=== PATIENT | female | born 1995 | race Caucasian/White ===

== ENCOUNTER 2022-11-27 06:57 | Outpatient (OUT) | payer OTHER, SELFPAY ==
[2022-11-27 07:37] VITALS: BP 121/70; PULSE 70
== END 2022-11-27 09:55 | disposition home or self-care (01) ==
LOC: FBCO 07:15 → FBC 07:24
PROVIDERS: PCP Obstetrics & Gynecology; Visit Provider Obstetrics & Gynecology
DX: O99.820 Streptococcus B carrier state complicating pregnancy (principal); E03.9 Hypothyroidism, unspecified
CPT/HCPCS: 59025

== ENCOUNTER 2022-12-01 15:42 | Outpatient (OUT) | payer OTHER, SELFPAY | END 2022-12-01 15:43 | LOC: LAB 15:42 | PROVIDERS: Visit Provider Obstetrics & Gynecology | DX: R94.6 Abnormal results of thyroid function studies (principal) | CPT/HCPCS: 36415; 84443 ==

== ENCOUNTER 2022-12-01 15:52 | Outpatient (OUT) | payer OTHER, SELFPAY ==
--- NOTE | 2022-12-01 15:59 | US_ITS ---
[address] [address] Patient Name: MELANY MARION MRN: [id number] date: 1995 Sex: F [place] [facility] [place] [facility] [place]Order Number: [id number] Exam Date: 12/01/2022 16:00 Report Date: 12/02/2022 15:09 At the request of: RAIZA BOLAND Procedure: US OB BPP w non-stress EXAMINATION: US OB BPP w non-stress HISTORY: E03.9 HYPOTHYROIDISM COMPARISON: Ultrasound biophysical 11/24/2022 TECHNIQUE: Ultrasound biophysical profile was performed in the radiology department. BREATHING MOVEMENTS: 2.0 GROSS BODY MOVEMENTS: 2.0 TONE: 2.0 QUALITATIVE AMNIOTIC FLUID VOLUME: 2.0 PRESENTATION: CEPHALIC HEART RATE: 142.9 bpm bpm. AMNIOTIC FLUID VOLUME: 13.1 cm GESTATIONAL AGE: 34 weeks 6 days CONCLUSION: Total biophysical profile score 8.0. Electronically authenticated by: NITO WELSH Date: 12/02/2022 15:09
[2022-12-01 16:32] VITALS: BP 115/57; PULSE 81
== END 2022-12-01 17:26 | disposition home or self-care (01) ==
LOC: FBCO 16:11 → FBC 16:12
PROVIDERS: Visit Provider Obstetrics & Gynecology
DX: O99.283 Endocrine, nutritional and metabolic diseases complicating pregnancy, third trimester (principal); E03.9 Hypothyroidism, unspecified; Z3A.34 34 weeks gestation of pregnancy; R94.6 Abnormal results of thyroid function studies
CPT/HCPCS: 36415; 59025; 76818; 84443

== ENCOUNTER 2022-12-04 08:58 | Outpatient (OUT) | payer OTHER, SELFPAY | END 2022-12-04 09:00 | disposition home or self-care (01) | LOC: FBCO 08:58 → FBC 08:59 | PROVIDERS: Visit Provider Obstetrics & Gynecology | DX: O99.280 Endocrine, nutritional and metabolic diseases complicating pregnancy, unspecified trimester (principal); Z3A.00 Weeks of gestation of pregnancy not specified | CPT/HCPCS: 59025 ==

== ENCOUNTER 2022-12-08 16:00 | Outpatient (OUT) | payer OTHER, SELFPAY ==
--- NOTE | 2022-12-08 | US_ITS ---
[address] [address] Patient Name: MELANY MARION MRN: [id number] date: 1995 Sex: F Assigned Patient Location: [facility] Current Patient Location: [facility] Accession/Order Number: [id number] Exam Date: 12/08/2022 16:30 Report Date: 12/08/2022 17:14 At the request of: YESENIA ZARAGOZA Procedure: US OB BPP w non-stress EXAMINATION: US OB BPP w non-stress HISTORY: E03.9 HYPOTHYROIDISM COMPARISON: Ultrasound biophysical 12/01/2022 TECHNIQUE: Ultrasound biophysical profile was performed in the radiology department. BREATHING MOVEMENTS: 2.0 GROSS BODY MOVEMENTS: 2.0 TONE: 2.0 QUALITATIVE AMNIOTIC FLUID VOLUME: 2.0 PRESENTATION: CEPHALIC HEART RATE: 158.8 bpm bpm. AMNIOTIC FLUID VOLUME: 16.8 cm GESTATIONAL AGE: 35 weeks 6 days CONCLUSION: Total biophysical profile score 8.0. Electronically authenticated by: NITO WELSH Date: 12/08/2022 17:14
[2022-12-08 16:22] VITALS: BP 136/59; PULSE 83
--- NOTE | 2022-12-08 16:35 | US_ITS ---
[address] [address] Patient Name: MELANY MARION MRN: [id number] date: 1995 Sex: F Assigned Patient Location: [facility] Current Patient Location: [facility] Accession/Order Number: [id number] Exam Date: 12/08/2022 16:30 Report Date: 12/08/2022 17:13 At the request of: YESENIA ZARAGOZA Procedure: US OB growth EXAMINATION: US OB growth HISTORY: E03.9 HYPOTHYROIDISM COMPARISON: Ultrasound growth 11/10/2022 FINDINGS: Heart Rate: 158.8 bpm Number: 1.0 Position: CEPHALIC Amniotic Fluid Volume: 16.8 cm Maximum Vertical Pocket: 8.4 cm BIOMETRY: BPD: 9.3 cm cm; 37 weeks 5 days; 94% HC: 32.7 cmcm; 37 weeks 1 days; 51% AC: 34.4 cm cm; 38 weeks 2 days; >97% FL: 6.7 cm cm; 34 weeks 4 days; 14% EFW: 3148.4 grams; 85% FL/AC: 19.5 FL/BPD: 72.4 HC/AC: 1.0 GESTATIONAL AGE: Age by EDC: 35 weeks 6 days SEBAS by EDC: 01/06/2023 Age by US: 37 weeks 0 days SEBAS by US: 12/29/2022 IMPRESSION: 1. Single live intrauterine with growth detailed above. 2. Abdominal circumference is greater than 97th percentile. Electronically authenticated by: NITO WELSH Date: 12/08/2022 17:13
== END 2022-12-08 17:15 | disposition home or self-care (01) ==
LOC: US 16:14 → FBC 16:15
PROVIDERS: Visit Provider Obstetrics & Gynecology
DX: O99.283 Endocrine, nutritional and metabolic diseases complicating pregnancy, third trimester (principal); E03.9 Hypothyroidism, unspecified; Z3A.35 35 weeks gestation of pregnancy
CPT/HCPCS: 59025; 76816; 76818; 87081; 96372; J0702

== ENCOUNTER 2022-12-08 20:52 | Outpatient (REF) | payer OTHER, SELFPAY | END 2022-12-08 20:53 | disposition home or self-care (01) | LOC: LAB 20:52 | PROVIDERS: Visit Provider Obstetrics & Gynecology | DX: Z34.93 Encounter for supervision of normal pregnancy, unspecified, third trimester (principal) | CPT/HCPCS: 87081 ==

== ENCOUNTER 2022-12-09 09:07 | Inpatient (IN) | payer OTHER, SELFPAY ==
[2022-12-09] VITALS (47 sets, daily range): BP systolic 98–150; BP diastolic 52–86; PULSE 57–93; RESP 18; TEMP 31–37.9
[2022-12-09] MEDS: 0.9 % SODIUM CHLORIDE 1,000 ML 1000 ML IV (10:40)
[2022-12-09] MEDS: FENTANYL CITRATE/PF 100 MCG/2 ML VIAL (10:41)
[2022-12-09] MEDS: 0.9 % SODIUM CHLORIDE 1,000 ML 125 ML IV ×2 (10:41→18:51)
--- NOTE | 2022-12-09 11:07 | PC.NURSE ---
899- patient arrives via wheelchair, tearful, breathing through ctx, stating she is excruciating pain, upper right side of her back. Pt. nauseated, pale and diaphoretic. Abdomen soft to palpation, no bleeding or leaking of fluid. Pt. given gown and encouraged to change and obtain urine sample, denies ability at this time. Tearful and changing positions frequently, stating something is very wrong, I am afraid my cerclage is going to rip . Dr. Natarajan notified of patients arrival and presentation. 904- Dr. Natarajan arrives into room and assesses patient, SVE completed, cerclage intact. Pt. tearful and states back pain is constant. HR 120's at this time. Orders received to arrange for Cerclage removal . 916- Cerclage removed per Dr. Natarajan, small amount of bright red bleeding noted. SVE 2 cm. Orders received to obtain epidural. IV to L wrist placed per Jamel Guzman RN, NS bolus initiated.
[2022-12-09] MEDS: OXYTOCIN 10 UNIT in 0.9 % SODIUM CHLORIDE 500 ML 6.012 UNIT IV (12:45)
[2022-12-09 13:20] LABS: Basophils Percent Auto 0.1 % (0.2-2.0); Hematocrit 33.4 % (36.0-48.0); Immature Granulocytes Abs Auto 0.15 10^3/uL (0.00-0.03); Lymphocytes Absolute Auto 2.5 10^3/uL (1.2-3.8); Mean Corpuscular HGB Conc 32.9 g/dL (29.9-35.2); Mean Corpuscular Hemoglobin 30.5 pg (26.7-34.0); Mean Corpuscular Volume 92.5 fL (81.0-99.0); Mean Platelet Volume 10.9 fL (9.5-13.5); Neutrophils Absolute Auto 10.8 10^3/uL (1.4-6.5); Neutrophils Percent Auto 74.9 % (43.0-75.0); Platelet Count 307 10^3/uL (150-450); Red Blood Count 3.61 10^6/uL (4.20-5.40); Red Cell Distribution Width 14.1 % (11.0-15.0); White Blood Count 14.4 10^3/uL (4.0-11.0)
[2022-12-09] MEDS: AMPICILLIN SODIUM 1,000 MG in 0.9 % SODIUM CHLORIDE 50 ML 100 MG IV ×2 (16:12→19:40)
[2022-12-09] MEDS: PANTOPRAZOLE SODIUM 40 MG 10 MG IV (16:14)
[2022-12-09] MEDS: SIMETHICONE 80 MG TAB.CHEW PO (16:21)
--- NOTE | 2022-12-09 16:34 | PC.NURSE ---
Protonix 40 IV and Simethicone given, as well as Amp 1 gm running IVPB.
--- NOTE | 2022-12-09 17:01 | PC.NURSE ---
Dr. Natarajan aware of pt.s temp, FHR strip, Pitocin stopped and reasoning. Orders for labs and to resume Pit received. Lab to room to draw pancreatic, liver and gall bladder enzymes.
--- NOTE | 2022-12-09 17:02 | PC.NURSE ---
Dinorah from Anesthesia to room to dose epidural with 5 ml's total 2% Lidocaine. Rate of Naropin remains at 10 ml/hr.
[2022-12-09 17:05] LABS: Alanine Aminotransferase 16 U/L (14-59); Amylase 38 U/L (25-115); Anion Gap 15.4; Aspartate Amino Transferase 20 U/L (15-37); BUN Creatinine Ratio 3.7; Calcium 8.3 mg/dL (8.5-10.1); Carbon Dioxide 20.8 mmol/L (21.0-32.0); Chloride 106 mmol/L (98-107); Estimated GFR (African America >60 (>=60); Estimated GFR (Non-African Ame >60 (>=60); Glucose 108 mg/dL (74-106); Potassium 3.2 mmol/L (3.5-5.1); Sodium 139 mmol/L (136-145)
[2022-12-09] MEDS: PROMETHAZINE HCL 25 MG/ML VIAL IM (22:19)
[2022-12-09] MEDS: FENTANYL CITRATE/PF 100 MCG/2 ML VIAL 50 MCG EPIDURAL (22:19)
[2022-12-10] VITALS (24 sets, daily range): BP systolic 114–157; BP diastolic 55–88; PULSE 49–131; RESP 14–18; TEMP 36.5–37.2
[2022-12-10] MEDS: AMPICILLIN SODIUM 1,000 MG in 0.9 % SODIUM CHLORIDE 50 ML 100 MG IV (01:20)
--- NOTE | 2022-12-10 01:56 | PM.OBPRCVD ---
Procedure Induction method: artificial rupture of membranes Delivery augmentation: rupture of membranes and pitocin Delivery monitor: external uterine and internal FHT Route of delivery: Episiotomy Description: midline Laceration description: perineal - 2nd degree Delivery repair: Vicryl Estimated blood loss (mL): 300 Anesthesia type: Epidural Disposition: floor Infant Delivery date: 12/10/22 Gender: male presentation: vertex Placental delivery description: Spontaneous and Normal Configuration cord description: 3 Vessels
[2022-12-10] MEDS: KETOROLAC TROMETHAMINE 30 MG/ML VIAL IVP (02:21)
[2022-12-10] MEDS: LIDOCAINE HCL 1% 200 MG/20 ML MDV INJ (02:25)
--- NOTE | 2022-12-10 05:43 | PC.NURSE ---
Small amount of lochia noted on chux pad. No clots.
--- NOTE | 2022-12-10 05:46 | PC.NURSE ---
Small amount of lochia noted with no clots.
--- NOTE | 2022-12-10 05:50 | PC.NURSE ---
Small amount of lochia noted on chux pad.
--- NOTE | 2022-12-10 05:52 | PC.NURSE ---
Small amount of lochia noted on chux pad.
--- NOTE | 2022-12-10 05:52 | PC.NURSE ---
Small lochia noted.
--- NOTE | 2022-12-10 05:53 | PC.NURSE ---
Addendum entered by Mulu Rashid RN 12/10/22 05:54: Freya pad changed at this assessment. Original Note: Small amount of lochia noted.
--- NOTE | 2022-12-10 05:56 | PC.NURSE ---
Small lochia noted on chux, no clots.
--- NOTE | 2022-12-10 05:57 | PC.NURSE ---
Small lochia noted.
--- NOTE | 2022-12-10 05:59 | PC.NURSE ---
Patient educated to get up to use restroom at this time, patient agrees and states legs are feeling good to walk. Linens gathered.
--- NOTE | 2022-12-10 06:14 | PC.NURSE ---
Epidural catheter removed and intact. Patient assisted to bathroom first time since delivery. This RN assists with chong care, gown change, and linen change of bed. Patient assisted back to bed.
--- NOTE | 2022-12-10 07:30 | W.PC.ACHO ---
Registration Status: ADM IN Primary Language: Lao Preferred Language: Lao Active Medications Report Given Generic Name Dose Route Start Last Admin Trade Name Freq PRN Reason Stop Dose Admin Acetaminophen 650 mg 12/10/22 01:52 Acetaminophen 325 Mg Tablet PO Q6H PRN Mild Pain Al Hydroxide/Mg Hydroxide 2,400 mg 12/10/22 01:52 Magnesium Hydroxide 2,400 Mg/10 Ml Oral.Susp PO Q6H PRN Dyspepsia Benzocaine/Menthol 1 applic 12/10/22 01:52 12/10/22 02:20 Benzocaine/Menthol 85 Gram Bottle TOPICAL 1 applic DIRECTED PRN Administration Pain Carboprost Tromethamine 250 mcg 12/09/22 10:12 Carboprost Tromethamine 250 Mcg/Ml 1 Ml Vial IM Q15M PRN Bleeding Diphtheria/Pertussis/Tetanus Vacc 0.5 ml 12/10/22 11:00 Adacel Diph,Pertuss(Acell),Tet Vac/Pf 0.5 Ml Adult Syringe IM 12/10/22 11:01 .ONCE ONE Docusate Sodium 100 mg 12/11/22 09:00 Docusate Sodium 100 Mg Capsule PO BID BUD Fentanyl Citrate 50 mcg 12/09/22 18:20 12/09/22 22:19 Fentanyl Citrate/Pf 100 Mcg/2 Ml Vial EPIDURAL 50 mcg ONCE PRN Administration Pain Sodium Chloride 1,000 mls @ 125 mls/hr 12/09/22 10:15 12/09/22 18:51 Sodium Chloride 0.9% 1,000 Ml IV 125 mls/hr .Q8H BUD Administration Oxytocin 10 unit/ Sodium 501 mls @ 6.012 mls/hr 12/09/22 13:00 12/09/22 12:45 Chloride IV 2 milliunit/min Q24H BUD 6.012 mls/hr Administration Protocol 2 MILLIUNIT/MIN Oxytocin 20 unit/ Sodium 1,002 mls @ 125 mls/hr 12/10/22 02:00 12/10/22 02:24 Chloride IV 12/10/22 09:59 125 mls/min Q8H BUD 125 mls/hr Administration Ibuprofen 600 mg 12/10/22 08:00 Ibuprofen 600 Mg Tablet PO Q6H PRN Moderate Pain Levothyroxine Sodium 175 mcg 12/10/22 08:00 Levothyroxine Sodium 175 Mcg Tablet PO ACB BUD Lidocaine 5 ml 12/09/22 10:12 Lidocaine Viscous 2% 15 Ml Topical Solution TOPICAL Q5M PRN Pain Lidocaine 1 ml 12/09/22 10:12 12/10/22 02:25 Lidocaine Hcl 1% 200 Mg/20 Ml Mdv INJ 1 ml Q5M PRN Administration Pain Measles/Mumps/Rubella Vaccine Live 0.5 ml 12/10/22 11:00 Measles,Mumps,Rubella Vacc/Pf 0.5 Ml Vial SQ 12/10/22 11:01 .ONCE ONE Methylergonovine Maleate 0.2 mg 12/09/22 10:12 Methylergonovine Maleate 0.2 Mg Tablet PO Q4H PRN Uterine Contractility/Contract Methylergonovine Maleate 0.2 mg 12/09/22 10:12 Methylergonovine Maleate 0.2 Mg/Ml Ampule IM ONCE PRN Uterine Contractility/Contract Misoprostol 600 mcg 12/09/22 10:12 Misoprostol 100 Mcg Tablet PO ONCE PRN Uterine Bleeding Misoprostol 800 mcg 12/09/22 10:12 Misoprostol 100 Mcg Tablet SL ONCE PRN Uterine Bleeding Misoprostol 1,000 mcg 12/09/22 10:12 Misoprostol 100 Mcg Tablet [place] ONCE PRN Uterine Bleeding Nalbuphine HCl 10 mg 12/09/22 10:12 Nalbuphine Hcl 10 Mg/Ml Ampule IV Q3H PRN Pain Ondansetron HCl 4 mg 12/09/22 10:12 Ondansetron Pf 4 Mg/2 Ml Vial IV Q6H PRN Nausea And Vomiting Ondansetron HCl 4 mg 12/09/22 10:12 Ondansetron 4 Mg Rapdis Tablet SL Q6H PRN Nausea And Vomiting Oxytocin 10 unit 12/09/22 10:12 Oxytocin 100 Unit/10 Ml Vial IM ONCE PRN Uterine Bleeding Pantoprazole Sodium 40 mg 12/09/22 21:00 12/10/22 01:19 Pantoprazole Sodium 40 Mg Vial IV Not Given Q12H BUD Senna 17.2 mg 12/10/22 20:00 Sennosides 8.6 Mg Tablet PO QHS PRN Constipation Simethicone 80 mg 12/10/22 01:52 Simethicone 80 Mg Tab.Chew PO QID PRN Abdominal Distention Temazepam 15 mg 12/10/22 20:00 Temazepam 15 Mg Capsule PO BEDTIME PRN Sleep Witch Winifred/Glycerin 1 each 12/10/22 01:52 12/10/22 02:20 Glycerin/Witch Winifred 1 Each Jar TOPICAL 1 each DIRECTED PRN Administration Pain Diet Category Date Time Status Regular Consistency Diet Diet 12/10/22 Breakfast Active IV Insertion/Site Date of IV Line Insertion [20g 12/10/22 right Hand] Date of IV Line Insertion [ 12/09/22 Short PIV (<1.75 in) 18g left Wrist] IV Insertion Time [20g right 03:15 Hand] IV Insertion Time [Short PIV ( 09:30 <1.75 in) 18g left Wrist] Neurology Patient orientation (short person,place,time,situation list) Shailesh coma scale total score 15 Respiratory Oxygen Delivery Method Room Air Bowels Bowel Pattern No Bowel Movement Renal Bladder Pattern Continent Catheter Date Urinary Catheter Removed 12/10/22
--- NOTE | 2022-12-10 08:01 | CT_ITS ---
[address] [address] Patient Name: MELANY MARION MRN: [id number] date: 1995 Sex: F Assigned Patient Location: [facility] Current Patient Location: [facility] Accession/Order Number: [id number] Exam Date: 12/10/2022 08:32 Report Date: 12/10/2022 09:12 At the request of: YESENIA ZARAGOZA Procedure: CT angio chest EXAMINATION: CT angio chest, CT abdomen pelvis w con HISTORY: pain r/o PE COMPARISON: No relevant comparison available. TECHNIQUE: Axial, Coronal, and Sagittal CT images were obtained without and with IV contrast. Dose reduction techniques were achieved by using automated exposure control and/or adjustment of mA and/or kV according to patient size and/or use of iterative reconstruction technique. FINDINGS: LUNGS: 4 mm solid nodule right upper lobe axial image 42, nonspecific. Minimal dependent opacities, atelectasis is favored PLEURA: Small bilateral pleural effusions measuring 5 to 8 mm VASCULATURE: No visible pulmonary arterial thrombus or attenuation. JEZ: No mass or adenopathy. MEDIASTINUM: No mass or adenopathy. CARDIAC: No enlargement, pericardial thickening, or pericardial effusion. CHEST WALL: No mass or axillary adenopathy. LIVER: No enlargement, atrophy, abnormal density, or significant focal lesion. BILIARY: No dilatation or calcification. PANCREAS: No lesion, fluid collection, ductal dilatation, or atrophy. SPLEEN: No enlargement or focal lesion. ADRENALS: No mass or enlargement. KIDNEYS: No mass, obstruction, or calcification. BOWEL/MESENTERY: No visible mass, obstruction, or bowel wall thickening. AORTA/VASCULAR: No aneurysm. RETROPERITONEUM: No mass or adenopathy. ABDOMINAL WALL: No mass or hernia. BONES: No bony lesion or fracture. Anterior wedging of the L4 vertebral body. Sclerosis suggests a chronic injury OTHER: Enlarged heterogeneous hypervascular is uterus consistent with the patient's state IMPRESSION: No central pulmonary thromboembolic disease Minimal atelectasis with small bilateral pleural effusions appearance of the uterus Electronically authenticated by: PEPE TELLES Date: 12/10/2022 09:12
--- NOTE | 2022-12-10 08:01 | CT_ITS ---
[address] [address] Patient Name: MELANY MARION MRN: [id number] date: 1995 Sex: F Assigned Patient Location: [facility] Current Patient Location: [facility] Accession/Order Number: [id number] Exam Date: 12/10/2022 08:32 Report Date: 12/10/2022 09:12 At the request of: YESENIA ZARAGOZA Procedure: CT abdomen pelvis w con EXAMINATION: CT angio chest, CT abdomen pelvis w con HISTORY: pain r/o PE COMPARISON: No relevant comparison available. TECHNIQUE: Axial, Coronal, and Sagittal CT images were obtained without and with IV contrast. Dose reduction techniques were achieved by using automated exposure control and/or adjustment of mA and/or kV according to patient size and/or use of iterative reconstruction technique. FINDINGS: LUNGS: 4 mm solid nodule right upper lobe axial image 42, nonspecific. Minimal dependent opacities, atelectasis is favored PLEURA: Small bilateral pleural effusions measuring 5 to 8 mm VASCULATURE: No visible pulmonary arterial thrombus or attenuation. JEZ: No mass or adenopathy. MEDIASTINUM: No mass or adenopathy. CARDIAC: No enlargement, pericardial thickening, or pericardial effusion. CHEST WALL: No mass or axillary adenopathy. LIVER: No enlargement, atrophy, abnormal density, or significant focal lesion. BILIARY: No dilatation or calcification. PANCREAS: No lesion, fluid collection, ductal dilatation, or atrophy. SPLEEN: No enlargement or focal lesion. ADRENALS: No mass or enlargement. KIDNEYS: No mass, obstruction, or calcification. BOWEL/MESENTERY: No visible mass, obstruction, or bowel wall thickening. AORTA/VASCULAR: No aneurysm. RETROPERITONEUM: No mass or adenopathy. ABDOMINAL WALL: No mass or hernia. BONES: No bony lesion or fracture. Anterior wedging of the L4 vertebral body. Sclerosis suggests a chronic injury OTHER: Enlarged heterogeneous hypervascular is uterus consistent with the patient's state IMPRESSION: No central pulmonary thromboembolic disease Minimal atelectasis with small bilateral pleural effusions appearance of the uterus Electronically authenticated by: PEPE TELLES Date: 12/10/2022 09:12
--- NOTE | 2022-12-10 08:59 | PC.NURSE ---
0830- Pt. off unit for CT.
[2022-12-10] MEDS: IBUPROFEN 600 MG TABLET PO ×2 (10:09→18:39)
--- NOTE | 2022-12-10 10:52 | PC.NURSE ---
[address] at this time.
[2022-12-10] MEDS: LEVOTHYROXINE SODIUM 175 MCG TABLET PO (13:00)
--- NOTE | 2022-12-10 14:51 | PC.NURSE ---
Kwasi has baby at breast currently. Latched well with few sucks and swallows noted. Discussed impact of Late Infant on and given handouts specific for same. Aware to pump after feeds or in replacement of feeds as may become tired sooner and need easy milk Mom voices full understanding.
[2022-12-11 00:48] VITALS: BP 117/67; PULSE 64
[2022-12-11 01:14] VITALS: RESP 16; TEMP 36.6
[2022-12-11] MEDS: IBUPROFEN 600 MG TABLET PO ×4 (04:04→22:44)
[2022-12-11] MEDS: LEVOTHYROXINE SODIUM 175 MCG TABLET PO (06:42)
--- NOTE | 2022-12-11 07:11 | W.PC.ACHO ---
Registration Status: ADM IN Primary Language: Citizen Of [place] Preferred Language: Citizen [place] Active Medications Generic Name Dose Route Start Last Admin Trade Name Freq PRN Reason Stop Dose Admin Acetaminophen 650 mg 12/10/22 01:52 Acetaminophen 325 Mg Tablet PO Q6H PRN Mild Pain Al Hydroxide/Mg Hydroxide 2,400 mg 12/10/22 01:52 Magnesium Hydroxide 2,400 Mg/10 Ml Oral.Susp PO Q6H PRN Dyspepsia Benzocaine/Menthol 1 applic 12/10/22 01:52 12/10/22 02:20 Benzocaine/Menthol 85 Gram Bottle TOPICAL 1 applic DIRECTED PRN Administration Pain Carboprost Tromethamine 250 mcg 12/09/22 10:12 Carboprost Tromethamine 250 Mcg/Ml 1 Ml Vial IM Q15M PRN Bleeding Docusate Sodium 100 mg 12/11/22 09:00 Docusate Sodium 100 Mg Capsule PO BID BUD Fentanyl Citrate 50 mcg 12/09/22 18:20 12/09/22 22:19 Fentanyl Citrate/Pf 100 Mcg/2 Ml Vial EPIDURAL 50 mcg ONCE PRN Administration Pain Sodium Chloride 1,000 mls @ 125 mls/hr 12/09/22 10:15 12/09/22 18:51 Sodium Chloride 0.9% 1,000 Ml IV 125 mls/hr .Q8H BUD Administration Oxytocin 10 unit/ Sodium 501 mls @ 6.012 mls/hr 12/09/22 13:00 12/09/22 12:45 Chloride IV 2 milliunit/min Q24H BUD 6.012 mls/hr Administration Protocol 2 MILLIUNIT/MIN Ibuprofen 600 mg 12/10/22 08:00 12/11/22 04:04 Ibuprofen 600 Mg Tablet PO 600 mg Q6H PRN Administration Moderate Pain Levothyroxine Sodium 175 mcg 12/10/22 08:00 12/11/22 06:42 Levothyroxine Sodium 175 Mcg Tablet PO 175 mcg ACB BUD Administration Lidocaine 5 ml 12/09/22 10:12 Lidocaine Viscous 2% 15 Ml Topical Solution TOPICAL Q5M PRN Pain Lidocaine 1 ml 12/09/22 10:12 12/10/22 02:25 Lidocaine Hcl 1% 200 Mg/20 Ml Mdv INJ 1 ml Q5M PRN Administration Pain Methylergonovine Maleate 0.2 mg 12/09/22 10:12 Methylergonovine Maleate 0.2 Mg Tablet PO Q4H PRN Uterine Contractility/Contract Methylergonovine Maleate 0.2 mg 12/09/22 10:12 Methylergonovine Maleate 0.2 Mg/Ml Ampule IM ONCE PRN Uterine Contractility/Contract Misoprostol 600 mcg 12/09/22 10:12 Misoprostol 100 Mcg Tablet PO ONCE PRN Uterine Bleeding Misoprostol 800 mcg 12/09/22 10:12 Misoprostol 100 Mcg Tablet SL ONCE PRN Uterine Bleeding Misoprostol 1,000 mcg 12/09/22 10:12 [address] ONCE PRN Uterine Bleeding Nalbuphine HCl 10 mg 12/09/22 10:12 Nalbuphine Hcl 10 Mg/Ml Ampule IV Q3H PRN Pain Ondansetron HCl 4 mg 12/09/22 10:12 Ondansetron Pf 4 Mg/2 Ml Vial IV Q6H PRN Nausea And Vomiting Ondansetron HCl 4 mg 12/09/22 10:12 Ondansetron 4 Mg Rapdis Tablet SL Q6H PRN Nausea And Vomiting Oxycodone/Acetaminophen 1 each 12/10/22 11:30 12/10/22 13:00 Oxycodone Hcl/Acetaminophen 5-325 Mg Tablet PO 1 each Q4H PRN Administration Pain Scale 7-10 Oxytocin 10 unit 12/09/22 10:12 Oxytocin 100 Unit/10 Ml Vial IM ONCE PRN Uterine Bleeding Pantoprazole Sodium 40 mg 12/09/22 21:00 12/10/22 01:19 Pantoprazole Sodium 40 Mg Vial IV Not Given Q12H BUD Rho Immune Globulin 1,500 unit 12/11/22 20:00 Rho(D) Immune Globulin 1,500 Unit Syringe IM 12/11/22 20:01 ONCE ONE Senna 17.2 mg 12/10/22 20:00 Sennosides 8.6 Mg Tablet PO QHS PRN Constipation Simethicone 80 mg 12/10/22 01:52 Simethicone 80 Mg Tab.Chew PO QID PRN Abdominal Distention Temazepam 15 mg 12/10/22 20:00 Temazepam 15 Mg Capsule PO BEDTIME PRN Sleep Witch Winifred/Glycerin 1 each 12/10/22 01:52 12/10/22 02:20 Glycerin/Witch Winifred 1 Each Jar TOPICAL 1 each DIRECTED PRN Administration Pain Diet Category Date Time Status Regular Consistency Diet Diet 12/10/22 Breakfast Active Neurology Patient orientation (short person,place,time,situation list) Shailesh coma scale total score 15 Shailesh coma scale total score 15 Respiratory Lung sounds [Right Lower Lobe] clear,Diminished Lung sounds [Throughout] clear Oxygen Delivery Method Room Air Oxygen Delivery Method Room Air Renal Bladder Pattern Continent Catheter Date Urinary Catheter Removed 12/10/22
[2022-12-11 07:14] LABS: Basophils Percent Auto 0.2 % (0.2-2.0); Eosinophils Percent Auto 0.2 % (0.9-7.0); Hematocrit 27.5 % (36.0-48.0); Hemoglobin 9.2 g/dL (12.0-16.0); Immature Granulocytes Abs Auto 0.08 10^3/uL (0.00-0.03); Immature Granulocytes Pct Auto 0.6 % (0.0-0.5); Lymphocytes Absolute Auto 1.8 10^3/uL (1.2-3.8); Lymphocytes Percent Auto 13.9 % (20.5-60.0); Mean Corpuscular HGB Conc 33.5 g/dL (29.9-35.2); Mean Corpuscular Hemoglobin 30.6 pg (26.7-34.0); Mean Corpuscular Volume 91.4 fL (81.0-99.0); Mean Platelet Volume 10.3 fL (9.5-13.5); Monocytes Absolute Auto 1.1 10^3/uL (0.3-0.8); Monocytes Percent Auto 8.1 % (1.7-12.0); Platelet Count 233 10^3/uL (150-450); Red Blood Count 3.01 10^6/uL (4.20-5.40); Red Cell Distribution Width 14.4 % (11.0-15.0)
[2022-12-11 09:03] VITALS: BP 135/89; PULSE 67
[2022-12-11] MEDS: DOCUSATE SODIUM 100 MG CAPSULE PO ×2 (09:03→20:30)
--- NOTE | 2022-12-11 09:06 | P.OBPN_ITS ---
OB - PN: Subj Subjective Patient comments: no complaints and pain well controlled [place] status: doing well Exam Constitutional Vital Signs - 24 hr 12/10/22 15:08 12/10/22 20:22 12/11/22 00:48 Temperature Pulse Rate 57 L 56 L 64 Respiratory Rate Blood Pressure 135/88 H 128/71 H 117/67 Oxygen Delivery Method 12/11/22 09:03 12/10/22 16:57 12/10/22 20:34 Temperature 98.1 F Pulse Rate 67 Respiratory Rate 18 Blood Pressure 135/89 H Oxygen Delivery Method Room Air Room Air 12/10/22 20:34 12/11/22 01:14 Temperature 97.7 F 97.9 F Pulse Rate Respiratory Rate 16 16 Blood Pressure Oxygen Delivery Method Documenting provider has reviewed patient's vital signs: yes Common normals: no apparent distress Respiratory Common normals: normal respiratory effort and clear to auscultation bilaterally Cardio Common normals: regular rate and regular rhythm GI Common normals: Normal to inspection, nondistended, normoactive bowel sounds present Extremity Common normals: no clubbing, cyanosis or edema and no calf tenderness Results Labs Labs: Short CBC 12/11/22 Range/Units 06:36 WBC 13.0 H (4.0-11.0) 10^3/uL Hgb 9.2 L (12.0-16.0) g/dL Hct 27.5 L (36.0-48.0) % Plt Count 233 (150-450) 10^3/uL OB - PN: A/P Plan - Vaginal Delivery day: 1 Plan: routine care, discharge home and follow up 6 weeks Time Spent with Patient Time: Total time spent is greater than 50% in coordination of care (as documented) at patient's floor/unit and/or counseling patient: Total time spent with greater than 50% in coordination of care (as documented) at patient's floor/unit and/or counseling patient: less than 15 minutes
--- NOTE | 2022-12-11 12:02 | W.PC.ACHO ---
Registration Status: ADM IN Primary Language: Djiboutian Preferred Language: [place]ib[place]ian Report given to Sherif Yost RN Active Medications Generic Name Dose Route Start Last Admin Trade Name Freq PRN Reason Stop Dose Admin Acetaminophen 650 mg 12/10/22 01:52 Acetaminophen 325 Mg Tablet PO Q6H PRN Mild Pain Al Hydroxide/Mg Hydroxide 2,400 mg 12/10/22 01:52 Magnesium Hydroxide 2,400 Mg/10 Ml Oral.Susp PO Q6H PRN Dyspepsia Benzocaine/Menthol 1 applic 12/10/22 01:52 12/10/22 02:20 Benzocaine/Menthol 85 Gram Bottle TOPICAL 1 applic DIRECTED PRN Administration Pain Carboprost Tromethamine 250 mcg 12/09/22 10:12 Carboprost Tromethamine 250 Mcg/Ml 1 Ml Vial IM Q15M PRN Bleeding Docusate Sodium 100 mg 12/11/22 09:00 12/11/22 09:03 Docusate Sodium 100 Mg Capsule PO 100 mg BID BUD Administration Fentanyl Citrate 50 mcg 12/09/22 18:20 12/09/22 22:19 Fentanyl Citrate/Pf 100 Mcg/2 Ml Vial EPIDURAL 50 mcg ONCE PRN Administration Pain Sodium Chloride 1,000 mls @ 125 mls/hr 12/09/22 10:15 12/09/22 18:51 Sodium Chloride 0.9% 1,000 Ml IV 125 mls/hr .Q8H BUD Administration Oxytocin 10 unit/ Sodium 501 mls @ 6.012 mls/hr 12/09/22 13:00 12/09/22 12:45 Chloride IV 2 milliunit/min Q24H BUD 6.012 mls/hr Administration Protocol 2 MILLIUNIT/MIN Ibuprofen 600 mg 12/10/22 08:00 12/11/22 10:21 Ibuprofen 600 Mg Tablet PO 600 mg Q6H PRN Administration Moderate Pain Levothyroxine Sodium 175 mcg 12/10/22 08:00 12/11/22 06:42 Levothyroxine Sodium 175 Mcg Tablet PO 175 mcg ACB BUD Administration Lidocaine 5 ml 12/09/22 10:12 Lidocaine Viscous 2% 15 Ml Topical Solution TOPICAL Q5M PRN Pain Lidocaine 1 ml 12/09/22 10:12 12/10/22 02:25 Lidocaine Hcl 1% 200 Mg/20 Ml Mdv INJ 1 ml Q5M PRN Administration Pain Methylergonovine Maleate 0.2 mg 12/09/22 10:12 Methylergonovine Maleate 0.2 Mg Tablet PO Q4H PRN Uterine Contractility/Contract Methylergonovine Maleate 0.2 mg 12/09/22 10:12 Methylergonovine Maleate 0.2 Mg/Ml Ampule IM ONCE PRN Uterine Contractility/Contract Misoprostol 600 mcg 12/09/22 10:12 Misoprostol 100 Mcg Tablet PO ONCE PRN Uterine Bleeding Misoprostol 800 mcg 12/09/22 10:12 Misoprostol 100 Mcg Tablet SL ONCE PRN Uterine Bleeding Misoprostol 1,000 mcg 12/09/22 10:12 Misoprostol 100 Mcg Tablet [place] ONCE PRN Uterine Bleeding Nalbuphine HCl 10 mg 12/09/22 10:12 Nalbuphine Hcl 10 Mg/Ml Ampule IV Q3H PRN Pain Ondansetron HCl 4 mg 12/09/22 10:12 Ondansetron Pf 4 Mg/2 Ml Vial IV Q6H PRN Nausea And Vomiting Ondansetron HCl 4 mg 12/09/22 10:12 Ondansetron 4 Mg Rapdis Tablet SL Q6H PRN Nausea And Vomiting Oxycodone/Acetaminophen 1 each 12/10/22 11:30 12/10/22 13:00 Oxycodone Hcl/Acetaminophen 5-325 Mg Tablet PO 1 each Q4H PRN Administration Pain Scale 7-10 Oxytocin 10 unit 12/09/22 10:12 Oxytocin 100 Unit/10 Ml Vial IM ONCE PRN Uterine Bleeding Pantoprazole Sodium 40 mg 12/09/22 21:00 12/10/22 01:19 Pantoprazole Sodium 40 Mg Vial IV Not Given Q12H BUD Rho Immune Globulin 1,500 unit 12/11/22 20:00 Rho(D) Immune Globulin 1,500 Unit Syringe IM 12/11/22 20:01 ONCE ONE Senna 17.2 mg 12/10/22 20:00 Sennosides 8.6 Mg Tablet PO QHS PRN Constipation Simethicone 80 mg 12/10/22 01:52 Simethicone 80 Mg Tab.Chew PO QID PRN Abdominal Distention Temazepam 15 mg 12/10/22 20:00 Temazepam 15 Mg Capsule PO BEDTIME PRN Sleep Witch Winifred/Glycerin 1 each 12/10/22 01:52 12/10/22 02:20 Glycerin/Witch Winifred 1 Each Jar TOPICAL 1 each DIRECTED PRN Administration Pain Neurology Patient orientation (short person,place,time,situation list) [place] coma scale total score 15 Respiratory Lung sounds [Right Lower Lobe] clear,Diminished Lung sounds [Throughout] clear Oxygen Delivery Method Room Air Oxygen Delivery Method Room Air Renal Bladder Pattern Continent Catheter Date Urinary Catheter Removed 12/10/22
[2022-12-11 16:33] VITALS: BP 125/81; PULSE 56
[2022-12-11 16:44] VITALS: PULSE 56; RESP 16; TEMP 36.8
--- NOTE | 2022-12-11 19:05 | W.PC.ACHO ---
Registration Status: ADM IN Primary Language: Surinamese Preferred Language: Surinamese Active Medications Generic Name Dose Route Start Last Admin Trade Name Freq PRN Reason Stop Dose Admin Acetaminophen 650 mg 12/10/22 01:52 Acetaminophen 325 Mg Tablet PO Q6H PRN Mild Pain Al Hydroxide/Mg Hydroxide 2,400 mg 12/10/22 01:52 Magnesium Hydroxide 2,400 Mg/10 Ml Oral.Susp PO Q6H PRN Dyspepsia Benzocaine/Menthol 1 applic 12/10/22 01:52 12/10/22 02:20 Benzocaine/Menthol 85 Gram Bottle TOPICAL 1 applic DIRECTED PRN Administration Pain Carboprost Tromethamine 250 mcg 12/09/22 10:12 Carboprost Tromethamine 250 Mcg/Ml 1 Ml Vial IM Q15M PRN Bleeding Docusate Sodium 100 mg 12/11/22 09:00 12/11/22 09:03 Docusate Sodium 100 Mg Capsule PO 100 mg BID BUD Administration Fentanyl Citrate 50 mcg 12/09/22 18:20 12/09/22 22:19 Fentanyl Citrate/Pf 100 Mcg/2 Ml Vial EPIDURAL 50 mcg ONCE PRN Administration Pain Sodium Chloride 1,000 mls @ 125 mls/hr 12/09/22 10:15 12/09/22 18:51 Sodium Chloride 0.9% 1,000 Ml IV 125 mls/hr .Q8H BUD Administration Oxytocin 10 unit/ Sodium 501 mls @ 6.012 mls/hr 12/09/22 13:00 12/09/22 12:45 Chloride IV 2 milliunit/min Q24H BUD 6.012 mls/hr Administration Protocol 2 MILLIUNIT/MIN Ibuprofen 600 mg 12/10/22 08:00 12/11/22 16:39 Ibuprofen 600 Mg Tablet PO 600 mg Q6H PRN Administration Moderate Pain Levothyroxine Sodium 175 mcg 12/10/22 08:00 12/11/22 06:42 Levothyroxine Sodium 175 Mcg Tablet PO 175 mcg ACB BUD Administration Lidocaine 5 ml 12/09/22 10:12 Lidocaine Viscous 2% 15 Ml Topical Solution TOPICAL Q5M PRN Pain Lidocaine 1 ml 12/09/22 10:12 12/10/22 02:25 Lidocaine Hcl 1% 200 Mg/20 Ml Mdv INJ 1 ml Q5M PRN Administration Pain Methylergonovine Maleate 0.2 mg 12/09/22 10:12 Methylergonovine Maleate 0.2 Mg Tablet PO Q4H PRN Uterine Contractility/Contract Methylergonovine Maleate 0.2 mg 12/09/22 10:12 Methylergonovine Maleate 0.2 Mg/Ml Ampule IM ONCE PRN Uterine Contractility/Contract Misoprostol 600 mcg 12/09/22 10:12 Misoprostol 100 Mcg Tablet PO ONCE PRN Uterine Bleeding Misoprostol 800 mcg 12/09/22 10:12 Misoprostol 100 Mcg Tablet SL ONCE PRN Uterine Bleeding Misoprostol 1,000 mcg 12/09/22 10:12 Misoprostol 100 Mcg Tablet [place] ONCE PRN Uterine Bleeding Nalbuphine HCl 10 mg 12/09/22 10:12 Nalbuphine Hcl 10 Mg/Ml Ampule IV Q3H PRN Pain Ondansetron HCl 4 mg 12/09/22 10:12 Ondansetron Pf 4 Mg/2 Ml Vial IV Q6H PRN Nausea And Vomiting Ondansetron HCl 4 mg 12/09/22 10:12 Ondansetron 4 Mg Rapdis Tablet SL Q6H PRN Nausea And Vomiting Oxycodone/Acetaminophen 1 each 12/10/22 11:30 12/10/22 13:00 Oxycodone Hcl/Acetaminophen 5-325 Mg Tablet PO 1 each Q4H PRN Administration Pain Scale 7-10 Oxytocin 10 unit 12/09/22 10:12 Oxytocin 100 Unit/10 Ml Vial IM ONCE PRN Uterine Bleeding Pantoprazole Sodium 40 mg 12/09/22 21:00 12/10/22 01:19 Pantoprazole Sodium 40 Mg Vial IV Not Given Q12H [facility] Rho Immune Globulin 1,500 unit 12/11/22 20:00 Rho(D) Immune Globulin 1,500 Unit Syringe IM 12/11/22 20:01 ONCE ONE Senna 17.2 mg 12/10/22 20:00 Sennosides 8.6 Mg Tablet PO QHS PRN Constipation Simethicone 80 mg 12/10/22 01:52 Simethicone 80 Mg Tab.Chew PO QID PRN Abdominal Distention Temazepam 15 mg 12/10/22 20:00 Temazepam 15 Mg Capsule PO BEDTIME PRN Sleep Witch Winifred/Glycerin 1 each 12/10/22 01:52 12/10/22 02:20 Glycerin/Witch Winifred 1 Each Jar TOPICAL 1 each DIRECTED PRN Administration Pain Neurology [place] coma scale total score 15 Respiratory Lung sounds [Right Lower Lobe] clear,Diminished Lung sounds [Throughout] clear Oxygen Delivery Method Room Air Oxygen Delivery Method Room Air Renal Bladder Pattern Continent
[2022-12-11] MEDS: RHO(D) IMMUNE GLOBULIN 1,500 UNIT SYRINGE 1500 UNIT IM (20:30)
[2022-12-11 23:53] VITALS: BP 133/75; PULSE 51; RESP 16; TEMP 36.4
[2022-12-12] MEDS: IBUPROFEN 600 MG TABLET PO ×2 (04:27→12:34)
[2022-12-12] MEDS: LEVOTHYROXINE SODIUM 175 MCG TABLET PO (06:36)
--- NOTE | 2022-12-12 07:33 | W.PC.ACHO ---
Registration Status: ADM IN Primary Language: British Preferred Language: British Active Medications Generic Name Dose Route Start Last Admin Trade Name Freq PRN Reason Stop Dose Admin Acetaminophen 650 mg 12/10/22 01:52 Acetaminophen 325 Mg Tablet PO Q6H PRN Mild Pain Al Hydroxide/Mg Hydroxide 2,400 mg 12/10/22 01:52 Magnesium Hydroxide 2,400 Mg/10 Ml Oral.Susp PO Q6H PRN Dyspepsia Benzocaine/Menthol 1 applic 12/10/22 01:52 12/10/22 02:20 Benzocaine/Menthol 85 Gram Bottle TOPICAL 1 applic DIRECTED PRN Administration Pain Carboprost Tromethamine 250 mcg 12/09/22 10:12 Carboprost Tromethamine 250 Mcg/Ml 1 Ml Vial IM Q15M PRN Bleeding Docusate Sodium 100 mg 12/11/22 09:00 12/11/22 20:30 Docusate Sodium 100 Mg Capsule PO 100 mg BID BUD Administration Fentanyl Citrate 50 mcg 12/09/22 18:20 12/09/22 22:19 Fentanyl Citrate/Pf 100 Mcg/2 Ml Vial EPIDURAL 50 mcg ONCE PRN Administration Pain Sodium Chloride 1,000 mls @ 125 mls/hr 12/09/22 10:15 12/09/22 18:51 Sodium Chloride 0.9% 1,000 Ml IV 125 mls/hr .Q8H BUD Administration Oxytocin 10 unit/ Sodium 501 mls @ 6.012 mls/hr 12/09/22 13:00 12/09/22 12:45 Chloride IV 2 milliunit/min Q24H BUD 6.012 mls/hr Administration Protocol 2 MILLIUNIT/MIN Ibuprofen 600 mg 12/10/22 08:00 12/12/22 04:27 Ibuprofen 600 Mg Tablet PO 600 mg Q6H PRN Administration Moderate Pain Levothyroxine Sodium 175 mcg 12/10/22 08:00 12/12/22 06:36 Levothyroxine Sodium 175 Mcg Tablet PO 175 mcg ACB BUD Administration Lidocaine 5 ml 12/09/22 10:12 Lidocaine Viscous 2% 15 Ml Topical Solution TOPICAL Q5M PRN Pain Lidocaine 1 ml 12/09/22 10:12 12/10/22 02:25 Lidocaine Hcl 1% 200 Mg/20 Ml Mdv INJ 1 ml Q5M PRN Administration Pain Methylergonovine Maleate 0.2 mg 12/09/22 10:12 Methylergonovine Maleate 0.2 Mg Tablet PO Q4H PRN Uterine Contractility/Contract Methylergonovine Maleate 0.2 mg 12/09/22 10:12 Methylergonovine Maleate 0.2 Mg/Ml Ampule IM ONCE PRN Uterine Contractility/Contract Misoprostol 600 mcg 12/09/22 10:12 Misoprostol 100 Mcg Tablet PO ONCE PRN Uterine Bleeding Misoprostol 800 mcg 12/09/22 10:12 Misoprostol 100 Mcg Tablet SL ONCE PRN Uterine Bleeding Misoprostol 1,000 mcg 12/09/22 10:12 Misoprostol 100 Mcg Tablet [place] ONCE PRN Uterine Bleeding Nalbuphine HCl 10 mg 12/09/22 10:12 Nalbuphine Hcl 10 Mg/Ml Ampule IV Q3H PRN Pain Ondansetron HCl 4 mg 12/09/22 10:12 Ondansetron Pf 4 Mg/2 Ml Vial IV Q6H PRN Nausea And Vomiting Ondansetron HCl 4 mg 12/09/22 10:12 Ondansetron 4 Mg Rapdis Tablet SL Q6H PRN Nausea And Vomiting Oxycodone/Acetaminophen 1 each 12/10/22 11:30 12/10/22 13:00 Oxycodone Hcl/Acetaminophen 5-325 Mg Tablet PO 1 each Q4H PRN Administration Pain Scale 7-10 Oxytocin 10 unit 12/09/22 10:12 Oxytocin 100 Unit/10 Ml Vial IM ONCE PRN Uterine Bleeding Pantoprazole Sodium 40 mg 12/09/22 21:00 12/10/22 01:19 Pantoprazole Sodium 40 Mg Vial IV Not Given Q12H BUD Senna 17.2 mg 12/10/22 20:00 Sennosides 8.6 Mg Tablet PO QHS PRN Constipation Simethicone 80 mg 12/10/22 01:52 Simethicone 80 Mg Tab.Chew PO QID PRN Abdominal Distention Temazepam 15 mg 12/10/22 20:00 Temazepam 15 Mg Capsule PO BEDTIME PRN Sleep Witch Winifred/Glycerin 1 each 12/10/22 01:52 12/10/22 02:20 Glycerin/Witch Winifred 1 Each Jar TOPICAL 1 each DIRECTED PRN Administration Pain Neurology [place] coma scale total score 15 Respiratory Oxygen Delivery Method Room Air Oxygen Delivery Method Room Air Cardiology Heart Sounds Regular Renal Bladder Pattern Continent
[2022-12-12 08:30] VITALS: BP 140/84; PULSE 40
[2022-12-12] MEDS: DOCUSATE SODIUM 100 MG CAPSULE PO (08:35)
--- NOTE | 2022-12-12 11:46 | PM.OBPN ---
OB - PN: Subj Subjective Patient comments: no complaints and pain well controlled Exam Constitutional Vital Signs - 24 hr 12/11/22 16:33 12/11/22 23:53 12/12/22 08:30 Temperature Pulse Rate 56 L 51 L 40 L Respiratory Rate Blood Pressure 125/81 H 133/75 H 140/84 H Blood Pressure [Right Arm] Oxygen Delivery Method 12/11/22 16:44 12/11/22 23:53 Temperature 98.2 F 97.6 F Pulse Rate 56 L 51 L Respiratory Rate 16 16 Blood Pressure Blood Pressure [Right Arm] 133/75 H Oxygen Delivery Method Room Air Room Air Documenting provider has reviewed patient's vital signs: yes Common normals: no apparent distress Respiratory Common normals: normal respiratory effort and clear to auscultation bilaterally Cardio Common normals: regular rate and regular rhythm GI Common normals: Normal to inspection, nondistended, normoactive bowel sounds present Extremity Common normals: no clubbing, cyanosis or edema and no calf tenderness OB - PN: A/P Plan - Vaginal Delivery day: 2 Plan: routine care, discharge home and follow up 6 weeks Time Spent with Patient Time: Total time spent is greater than 50% in coordination of care (as documented) at patient's floor/unit and/or counseling patient: Total time spent with greater than 50% in coordination of care (as documented) at patient's floor/unit and/or counseling patient: less than 15 minutes
== END 2022-12-12 13:00 | disposition home or self-care (01) | DRG 807 ==
PROVIDERS: Admitting Provider Obstetrics & Gynecology; Visit Provider Obstetrics & Gynecology
DX: O99.284 Endocrine, nutritional and metabolic diseases complicating childbirth (principal); Z37.0 Single live birth; E03.9 Hypothyroidism, unspecified; O70.1 Second degree perineal laceration during delivery; Z3A.37 37 weeks gestation of pregnancy
CPT/HCPCS: 36415; 59050; 59410; 59412; 59899; 71275; 74177; 80048; 82150; 83690; 84450; 84460; 85025; 85027; 85461; 86850; 86870; 86880; 86900; 86901; 86905; 86906; 96365; 96372; 96375; 96376; 97140; 97161; J2790; Q9967

== ENCOUNTER 2022-12-15 08:13 | Outpatient (RCR) | payer OTHER, SELFPAY ==
[2022-12-15 17:06] VITALS: BP 124/80; PULSE 53; RESP 16; TEMP 36.6; O2SAT 96
--- NOTE | 2022-12-15 17:14 | PC.NURSE ---
Kwasi presents today with frustration and anxiety over . Has had poor outcomes with 2 other children. !st baby at 30weeks, could only pump 50-70 ml. Stopped shortly after baby home from NICU. Second child 39 week delivery but baby had tongue tie in which PCP for child said don't worry about it, shouldn't interfer with feeding much Kwasi quit after 3 weeks of effort and terrible discomfort with feeds. 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 Also hindered by DX of hypothyroid and on levothyroxin daily. States levels are checked every 4 weeks but usually fluctuates greatly. Much support, discussion and venting allowed. Remains undecided if will switch to Formula now or will wait for PEDS evaluation of infant mouth and try to work through emotions. Encouraged to take time and evaluate feelings. agreeable and Kwasi leaves feeling validated. Will call for questions/help or support.
== END 2022-12-15 11:45 | disposition home or self-care (01) ==
LOC: FBCO 08:13
PROVIDERS: Visit Provider Obstetrics & Gynecology
DX: Z39.1 Encounter for care and examination of lactating mother (principal)

== ENCOUNTER 2023-10-18 16:09 | Outpatient (OUT) | payer OTHER, SELFPAY ==
[2023-10-18 16:59] LABS: Free T3 2.76 pg/mL (2.18-3.98); Thyroid Stimulating Hormone 1.105 uIU/mL (0.358-3.740)
[2023-10-18 17:08] LABS: Free T4 1.29 ng/dL (0.76-1.46)
== END 2023-10-18 16:10 | disposition home or self-care (01) ==
LOC: LAB 16:09
PROVIDERS: Visit Provider Internal Medicine
DX: E03.9 Hypothyroidism, unspecified (principal)
CPT/HCPCS: 36415; 84439; 84443; 84481

== ENCOUNTER 2024-12-04 19:21 | Outpatient (REF) | payer OTHER, SELFPAY ==
[2024-12-08 07:08] LABS: Age Gdln ACOG Testing Note (.); IGP, rfx Aptima HPV ASCU Note (.)
== END 2024-12-04 19:22 | disposition home or self-care (01) ==
LOC: LAB 19:21
PROVIDERS: Visit Provider Obstetrics & Gynecology
DX: Z01.419 Encounter for gynecological examination (general) (routine) without abnormal findings (principal)
CPT/HCPCS: 88175